=== PATIENT | female | born 1950 | race Caucasian/White ===

== ENCOUNTER 2018-11-15 11:45 | Outpatient (CLI) | payer MEDICARE ==
--- NOTE | 2018-12-05 15:10 | MMO ---
Bilateral MAMMO Bilat Screen [facility]. CLINICAL HISTORY: Patient is 67 years old and is seen for screening. The patient has the following family history of breast cancer: mother. The patient has no personal history of cancer. The patient has a history of left Stereotatic Biopsy in 2010 - benign and left Excisional Biopsy - benign. VIEWS: The views performed were: bilateral craniocaudal with tomosynthesis and bilateral mediolateral oblique with tomosynthesis. FILMS COMPARED: The present examination has been compared to prior imaging studies performed at [facility] on 09/01/2014, 09/03/2015 and 10/23/2017. MAMMOGRAM FINDINGS: There are scattered fibroglandular densities. There are stable benign appearing calcifications seen in both breasts. There are no suspicious masses, suspicious calcifications, or new areas of architectural distortion. IMPRESSION: THERE IS NO MAMMOGRAPHIC EVIDENCE OF MALIGNANCY. A ROUTINE FOLLOW-UP MAMMOGRAM IN 1 YEAR IS RECOMMENDED. THE RESULTS OF THIS EXAM WERE SENT TO THE PATIENT. ACR BI-RADS Category 2 - Benign finding MAMMOGRAPHY NOTE: 1. A negative mammogram report should not delay a biopsy if a dominant of clinically suspicious mass is present. 2. Approximately 10% to 15% of breast cancers are not detected by mammography. 3. Adenosis and dense breasts may obscure an underlying neoplasm.
== END 2018-11-15 11:46 | disposition home or self-care (01) ==
LOC: BICMAMMO 11:45
PROVIDERS: ATTEND Family Medicine
DX: Z12.31 Encounter for screening mammogram for malignant neoplasm of breast (principal); Z80.3 Family history of malignant neoplasm of breast
CPT/HCPCS: 77063; 77067

== ENCOUNTER 2020-05-04 13:01 | Outpatient (CLI) | payer MEDICARE ==
--- NOTE | 2020-05-04 14:54 | MMO ---
Bilateral MAMMO Bilat Screen [facility]. CLINICAL HISTORY: Patient is 69 years old and is seen for screening. The patient has the following family history of breast cancer: mother. The patient has no personal history of cancer. The patient has a history of left Stereotatic Biopsy in 2010 - benign and left Excisional Biopsy - benign. VIEWS: The views performed were: bilateral craniocaudal with tomosynthesis and bilateral mediolateral oblique with tomosynthesis. FILMS COMPARED: The present examination has been compared to prior imaging studies performed at [facility] on 09/01/2014, 09/03/2015 and 10/23/2017, and at [facility] on 11/15/2018. This study has been interpreted with the assistance of computer-aided detection. MAMMOGRAM FINDINGS: There are scattered fibroglandular densities. Finding 1: Benign calcifications are noted bilaterally. Finding 2: There is increase in number of tiny calcs in the right subaerolar brest. IMPRESSION: FINDING 1: FINDINGS IN BOTH BREASTS ARE BENIGN. FINDING 2: FINDING IN THE RIGHT BREAST REQUIRES ADDITIONAL EVALUATION. MAGNIFICATION VIEWS ARE RECOMMENDED. THE RESULTS OF THIS EXAM WERE SENT TO THE PATIENT. ACR BI-RADS Category 0 - Incomplete: Need additional imaging evaluation. [facility] will notify the patient of the need for additional imaging services. MAMMOGRAPHY NOTE: 1. A negative mammogram report should not delay a biopsy if a dominant of clinically suspicious mass is present. 2. Approximately 10% to 15% of breast cancers are not detected by mammography. 3. Adenosis and dense breasts may obscure an underlying neoplasm. Reported by: PETRA GREENE MD Electonically Signed: [id number]
== END 2020-05-04 13:02 | disposition home or self-care (01) ==
LOC: BICMAMMO 13:01
PROVIDERS: ATTEND Family Medicine
DX: Z12.31 Encounter for screening mammogram for malignant neoplasm of breast (principal); Z80.3 Family history of malignant neoplasm of breast
CPT/HCPCS: 77063; 77067

== ENCOUNTER 2020-05-10 12:44 | Outpatient (CLI) | payer MEDICARE ==
--- NOTE | 2020-05-10 14:37 | MMO ---
Right Breast MAMMO Unilat Diag [facility]DI [facility]+REID. CLINICAL HISTORY: Patient is 69 years old and is seen for diagnostic exam. The patient has the following family history of breast cancer: mother. The patient has no personal history of cancer. The patient has a history of left Stereotatic Biopsy in 2010 - benign and left Excisional Biopsy - benign. VIEWS: The views performed were: right craniocaudal magnification; right mediolateral magnification; and right mediolateral with tomosynthesis. FILMS COMPARED: The present examination has been compared to prior imaging studies performed at [facility] on 10/23/2017, and at [facility] on 11/15/2018, 05/04/2020 and 05/10/2020. This study has been interpreted with the assistance of computer-aided detection. MAMMOGRAM FINDINGS: There are scattered fibroglandular densities. There are calcifications seen in the anterior region of the right breast at 12 o'clock. The calcifications have increased in number. IMPRESSION: CALCIFICATIONS IN THE RIGHT BREAST ARE SUSPICIOUS. A STEREOTACTIC BREAST BIOPSY IS RECOMMENDED. THE RESULTS OF THIS EXAM WERE SENT TO THE PATIENT. ACR BI-RADS Category 4 - Suspicious abnormality - biopsy should be considered MAMMOGRAPHY NOTE: 1. A negative mammogram report should not delay a biopsy if a dominant of clinically suspicious mass is present. 2. Approximately 10% to 15% of breast cancers are not detected by mammography. 3. Adenosis and dense breasts may obscure an underlying neoplasm. Reported by: MATTHEW MITCHELL MD Electonically Signed: [id number]
--- NOTE | 2020-05-10 15:37 | ULT ---
RIGHT BREAST ULTRASOUND: Date: 05/10/2020 HISTORY: Increasing number of right breast calcifications noted at the 12 o'clock position of the right breas t 4.0 cm from the nipple. FINDINGS: Real-time imaging of the area of concern by the technologist showed a vague hypoechoic area which wou ld be approximately in this location; however, on real-time imaging by myself, this is difficult to d efinitely reproduce. There are probably calcifications in this area, but I think the more definitive biopsy would be a stereotactic procedure. IMPRESSION: BI-RADS Category 4 - Suspicious abnormality. Stereotactic biopsy is recommended based on mammographic findings. Ultrasound findings are inconclusive. POS: OFF
== END 2020-05-10 12:45 | disposition home or self-care (01) ==
LOC: BICMAMMO 12:44
PROVIDERS: ATTEND Family Medicine
DX: R92.1 Mammographic calcification found on diagnostic imaging of breast (principal)
CPT/HCPCS: 76642; 77065; G0279

== ENCOUNTER → 2020-05-20 | Day surgery (SDC) | payer MEDICARE ==
--- NOTE | 2020-05-20 10:34 | MMO ---
RIGHT BREAST STEREOTACTIC BIOPSY: HISTORY: Right breast calcifications. COMPARISON: None. FINDINGS: Successful right breast stereotactic biopsy. FINDINGS: Successful right breast stereotactic biopsy. Calcifications are present in the sample. The patient tolerated the procedure well. No immediate post procedure complications. TECHNIQUE: The patient was placed in a prone position on the stereotactic table. The right breast was compresse d in the CC projection. Calcifications are identified. The skin was prepped and draped in sterile f ashion. 1% Lidocaine, buffered with sodium bicarbonate, was used for local anesthesia. Needle posit ion was cut from pre- and post-firing, with respect to the calcifications. Stereotactic biopsy was p erformed. A total of six 10-gauge core biopsy samples were obtained. Post biopsy clip was placed. Hemostasis was achieved with manual pressure. SPECIMEN RADIOGRAPH: Multiple calcifications are present. POST BIOPSY CLIP: Surgical clip is slightly inferior and posterior to the biopsy site. IMPRESSION: 1. Successful right breast stereotactic biopsy. 2. Surgical specimen demonstrates calcifications. 3. Biopsy clip is slightly posterior and inferior to the operative site. POS: [facility]
== END ==
LOC: MAMMO 06:54
PROVIDERS: ATTEND Family Medicine
PROC: 0H9T3ZX Drainage of Right Breast, Percutaneous Approach, Diagnostic (ICD-10-PCS; principal; 2020-05-20)
DX: C50.811 Malignant neoplasm of overlapping sites of right female breast (principal)
CPT/HCPCS: 19081; 76098; 88305; 88341; 88342

== ENCOUNTER 2020-06-10 06:58 | Outpatient (CLI) | payer MEDICARE ==
[2020-06-10 16:56] LABS: #Eosinphils 0.1 10x3/uL (0.0-0.5); #Monocytes 0.6 10x3/uL (0.0-1.1); #Neutrophils 3.8 10x3/uL (1.5-8.4); %Basophils 0.5 % (0.0-2.0); %Eosinophils 1.2 % (0.0-6.0); %Monocytes 9.2 % (0.0-10.0); %Neutrophils 57.8 % (40.0-75.0); Hemoglobin 15.2 g/dL (12.0-16.0); Mean Corpuscular HGB CONC 33.4 G/DL (32.0-36.0); Mean Corpuscular Hemoglobin 31.7 PG (27.0-33.0); Mean Platelet Volume 9.1 fl (7.4-10.4); Platelet Count 181 10x3/uL (130-400); Red Blood Cell (RBC) Count 4.79 10x6/uL (3.90-5.20); White Blood Cell (WBC) Count 6.5 10x3/uL (4.5-11.0)
[2020-06-10 17:10] LABS: Anion Gap 14 mmol/L (10-20); BUN (Urea Nitrogen) 15 mg/dL (9.8-20.1); Calc. Creatinine Clearance 0 mL/min (70-130); Calcium 9.6 mg/dL (7.8-10.44); Carbon Dioxide 26 mmol/L (23-31); Chloride 105 mmol/L (98-107); Glucose 112 mg/dL (80-115); Potassium 4.5 mmol/L (3.5-5.1); Sodium 140 mmol/L (136-145)
[2020-06-11 03:12] LABS: SARS-CoV-2 MS2 Positive; SARS-CoV-2 N Gene Negative; SARS-CoV-2 S Gene Negative; SARS-CoV-2 by NAA Not Detected (NotDetected); SARS-CoV-2 orf1ab Negative
== END 2020-06-10 06:59 | disposition home or self-care (01) ==
LOC: LABBT 06:58
PROVIDERS: ATTEND Specialist
DX: Z01.818 Encounter for other preprocedural examination (principal); C50.911 Malignant neoplasm of unspecified site of right female breast; Z20.828 Contact with and (suspected) exposure to other viral communicable diseases
CPT/HCPCS: 80048; 85025; U0003; 87635; 93005; 93010

== ENCOUNTER 2020-06-15 07:30 | Day surgery (SDC) | payer MEDICARE ==
[2020-06-14 12:05] VITALS: BMI 34.0
[2020-06-15] MEDS ORDERED: Acetaminophen 500 MG TAB ONE (09:13)
[2020-06-15] MEDS ORDERED: Ketorolac Tromethamine 30 MG/ML VIAL ONE (09:13)
--- NOTE | 2020-06-15 09:27 | NM ---
NM Lymphoscintigraphy History: Malignant neoplasm of breast Comparison: None. Findings: 0.412 mCi technetium 99m filtered sulfur colloid was instilled subcutaneously along the are elías. There is uptake within the right axilla. Impression: [place] lymph node to the right axilla.
[2020-06-15] MEDS ORDERED: Dexamethasone 20 MG/5 ML VIAL ONE (10:28)
[2020-06-15] MEDS ORDERED: Lidocaine 1% PF 5 ML VIAL ONE (10:28)
[2020-06-15] MEDS ORDERED: PROPOFOL 200 MG/20 ML VIAL ONE (10:28)
[2020-06-15] MEDS ORDERED: Rocuronium Bromide 10 MG/ML (10ML VIAL) ONE (10:28)
[2020-06-15] MEDS ORDERED: Glycopyrrolate 0.2 MG/ML 5 ML SYRINGE ONE (10:28)
[2020-06-15] MEDS ORDERED: Ondansetron PF 4 MG/2 ML Vial ONE (10:28)
[2020-06-15] MEDS ORDERED: Fentanyl 100 MCG/2 ML VIAL ONE ×2 (12:52→16:54)
[2020-06-15] MEDS ORDERED: Bupivacaine 0.25% HCL 30 ML VIAL ONE (13:02)
[2020-06-15] MEDS ORDERED: Isosulfan Blue 50 MG/5 ML VIAL ONE (13:02)
[2020-06-15] MEDS ORDERED: Lidocaine 1% w/Epinephrine 1:100K 20 ML VIAL ONE (13:02)
[2020-06-15] MEDS ORDERED: Fentanyl 250 MCG/5 ML VIAL ONE (13:17)
[2020-06-15] MEDS ORDERED: Midazolam HCl 2 mg/2 ml Vial ONE (13:18)
[2020-06-15] MEDS ORDERED: Ondansetron HCl/PF 4 MG/2 ML Vial IVP PRN (16:32)
[2020-06-15] MEDS ORDERED: Dextrose 50% Abboject 50 ML SYRINGE SLOW IVP PRN (16:34)
[2020-06-15] MEDS ORDERED: Morphine 4 MG/ML VIAL SLOW IVP PRN (16:34)
[2020-06-15] MEDS ORDERED: HYDROcodone/Acetaminophen 7.5/325 mg Tablet PO PRN (16:34)
[2020-06-15] MEDS ORDERED: Dextrose 5% in Water 1,000 ML IV PRN (16:34)
[2020-06-15] MEDS ORDERED: Promethazine HCl 25 MG/ML VIAL IM PRN (16:34)
[2020-06-15] MEDS ORDERED: Ondansetron PF 4 MG/2 ML Vial IVP PRN (16:34)
[2020-06-15] MEDS ORDERED: Morphine 2 MG/ML VIAL SLOW IVP PRN (16:34)
[2020-06-15] MEDS ORDERED: hydrALAZINE 20 MG/ML VIAL SLOW IVP PRN (16:34)
[2020-06-15] MEDS ORDERED: D5 1/2 NS w/20 mEq KCL 1,000 ML IV SCH (20:00)
[2020-06-15] MEDS ORDERED: traMADol HCl 50 MG TAB ONE (20:11)
[2020-06-15] MEDS ORDERED: Famotidine 20 MG TAB PO SCH (21:00)
[2020-06-15] MEDS ORDERED: Losartan 25 MG TAB PO SCH (21:00)
[2020-06-15] MEDS ORDERED: Nebivolol HCl 5 MG TAB PO SCH (21:00)
[2020-06-16] MEDS ORDERED: Levothyroxine Sodium 75 MCG TAB PO SCH (06:00)
--- NOTE | 2020-06-16 11:39 | OP ---
DATE OF PROCEDURE: 06/15/2020 PREOPERATIVE DIAGNOSIS: Right breast cancer. POSTOPERATIVE DIAGNOSIS: Right breast cancer. PROCEDURES PERFORMED: Bilateral mastectomy with right axillary sentinel lymph node biopsy. ANESTHESIA: General endotracheal. INDICATIONS: The patient is a 69-year-old white female. She was recently found on biopsy to have an invasive ductal carcinoma of the right breast. The imaging of this was with somewhat challenging from an ultrasound standpoint. After discussion of all options regarding the surgical treatment of her breast cancer, she has decided that she would prefer to have a bilateral mastectomy and a sentinel lymph node biopsy. She underwent preoperative lymphoscintigraphy, which demonstrated right axillary sentinel lymph nodes. DESCRIPTION OF OPERATION: Informed consent was obtained. The patient was taken to the operating room, where general endotracheal anesthesia was obtained with the patient in supine position. A 3 mL of isosulfan blue was infiltrated in the right periareolar subdermal tissue and massaged for 5 minutes. Bilateral breasts were prepped with ChloraPrep and draped in sterile fashion. Attention was turned first to the right breast. An elliptical incision was created across the chest wall to include the nipple-areolar complex. Attention was then turned to the upper outer aspect of the dissection. I dissected down through the superficial axillary fascia. I used a Neoprobe to identify areas of maximum radio intensity. Through the mastectomy incision, I was able to identify and dissect three separate sentinel lymph nodes. These were each carefully dissected circumferentially and all investing lymphatics were divided between clamps and 3-0 silk ties. These were submitted for intraoperative evaluation with touch prep and they all proved to be negative. After the lymph nodes were assessed, attention was turned to the left breast. An elliptical incision was created across the left breast and chest wall. Flaps were raised superiorly, medially, and inferiorly using the plasma blade for dissection. The breast was then swept off the chest wall in a medial to lateral fashion. At the lateral border of the pectoralis, the dissection was not continued into the axilla and the specimen was removed intact, tagged for orientation, and submitted for pathologic evaluation. I then spent a good amount of tailor in the skin edges to minimize cutaneous redundancy as well as the typical axillary bulge. After the skin edges had been optimized, the wound was irrigated with saline. A #19 round fluted drain was brought out laterally and inferiorly. This was secured with 3-0 nylon suture. The skin flaps were then approximated with interrupted sutures of 3-0 Vicryl and skin wilner. Attention was then turned to the right breast. A mirror-image operation was performed on the right as had already been performed on the left. The malignancy was never encountered during the course of the resection as it was central, and therefore underlying the skin that was removed. Again, an axillary dissection was not performed as the sentinel lymph nodes were negative. The skin edges were again carefully tailored and the skin flaps closed carefully using Vicryl and wilner. A Xeroform gauze followed by fluffed gauze and a SilversteinWrap dressing was applied. Sterile occlusive dressings were applied over each drain site. There were no complications. Blood loss was minimal. The patient tolerated the procedure well and was taken to recovery room in stable condition. Job ID: [id number]
== END 2020-06-15 21:00 | disposition home or self-care (01) ==
LOC: SDC 07:30
PROVIDERS: ATTEND Specialist
PROC: 0HTV0ZZ Resection of Bilateral Breast, Open Approach (ICD-10-PCS; principal; 2020-06-15)
PROC: 07B50ZX Excision of Right Axillary Lymphatic, Open Approach, Diagnostic (ICD-10-PCS; 2020-06-15)
DX: D05.11 Intraductal carcinoma in situ of right breast (principal); D05.12 Intraductal carcinoma in situ of left breast; E03.9 Hypothyroidism, unspecified; I10 Essential (primary) hypertension; Z87.891 Personal history of nicotine dependence; Z79.899 Other long term (current) drug therapy; Z88.1 Allergy status to other antibiotic agents; Z91.040 Latex allergy status
CPT/HCPCS: 19303; 38525; 38900; 78195; 88305; 88307; 88309; 88333; 88334; A9541; Q9968; 88341; 88342; J0690; J1100; J1885; J2250; J2405; J2704; J3010; S0020